=== PATIENT | female | born 1955 | race Caucasian/White ===

== ENCOUNTER → 2018-10-29 10:18 | Outpatient (CLI) | payer MEDICARE, SELFPAY ==
[2018-10-29 10:43] LABS: Prothrombin Time (Protime)PT. 12.8 SECONDS (11.7-14.9)
[2018-10-29 10:44] LABS: Partial Thromboplast Time 28.1 Seconds (24.1-36.2)
[2018-10-29 10:56] VITALS: BP 123/51; PULSE 98; RESP 16; TEMP 36.4; O2SAT 99; BMI 21.9
--- NOTE | 2018-10-29 11:05 | RAD_ITS ---
PROCEDURE: LUMBAR MYELOGRAM DATE OF EXAMINATION: October 29, 2018. INDICATION: Female, 63 years old. Prior lower lumbar and cervical spine fusion. PHYSICIAN: Benji Schreiber M.D. CONSENT: The patient's history and physical findings were reviewed. The lumbar myelogram procedure was discussed with the patient prior to signing a consent. SEDATION: Local anesthesia with 3 mL of 1% lidocaine was used. FLUOROSCOPY TIME (if supplied): (93 seconds) minutes/seconds Injection Information: 15 cc of Isovue-M 300 Number of images obtained: 6 TECHNIQUE: Digital fluoroscopy was used to identify a safe approach for the lumbar myelogram. The back was prepped and draped in usual fashion. Local anesthesia was utilized. Under fluoroscopic guidance a 22-gauge spinal needle was inserted into the spinal canal at L2-L3 level. 15 mL of Isovue 300 M was injected into the spinal canal. There is good opacification of the spinal fluid. The nerve root sheaths are asymmetrically identified. There is no extradural defects. Following this, the patient was put in a Trendelenburg position. Contrast was advanced to the cervical spine. A CT scan will follow. RAD/Cervical Myelogram IMPRESSION: Intrathecal contrast ministration. Contrast was advanced to the level of the cervical spine for CT imaging. The patient tolerated the procedure well. Electronically Signed: Benji Schreiber MD at 14:52 EST Tel [phone], Service support ,
--- NOTE | 2018-10-29 11:34 | CT_ITS ---
STUDY: CT CERVICAL SPINE WITH INTRATHECAL CONTRAST (CERVICAL CT MYELOGRAM) REASON FOR EXAM: Female, 63 years old. History of multiple cervical spinal fusions. Continued pain. RADIATION DOSAGE (If Supplied By Facility): CTDIvol = ( 13.71 ) mGy, DLP = ( 278.09 ) mGycm TECHNIQUE: Transaxial images were obtained following intrathecal administration of 15 ml of Isovue-M 300 contrast material, performed by Dr. Schreiber. Please refer to this physicians technical notes for procedural details. Coronal and sagittal reconstructions were obtained. Individualized dose optimization techniques were used for this CT. COMPARISON: None. 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 Normal anterior atlantoaxial articulation. Normal odontoid process. Normal cervical lordosis. The patient is status post anterior fusion with screw and plate fixation device at the C4-C5, C5-C6 and C6-C7 levels. The patient also status post screw and jose fixation involving the occipital bone as well as the C3 and C4 vertebrae and laminectomy. C2-3: Normal endplates. Normal disc height and morphology. Normal central canal and bilateral intervertebral neural foramen. C3-4: Normal endplates. Normal disc height and morphology. Normal central canal and bilateral intervertebral neural foramen. C4-C5 :Anterior screw fixation and plate device is seen. There is evidence of a fusion. C5-6: Anterior fusion and disc space narrowing. C6-7: Anterior fusion and disc space narrowing. Posterior bulge of the C7 vertebra causing minimal deformity of the central thecal sac. C7-T1: Minimal central disc bulge causing deformity of thecal sac. The nerve roots are unremarkable. Normal cervical cord size and morphology. No demonstrated soft tissue abnormality. CT/Spine Cervical without Contras IMPRESSION: Multiple findings as described above. Electronically Signed: Benji Schreiber MD at 10:13 EST Tel [phone], Service support ,
[2018-10-29 12:45] VITALS: BP 107/65; PULSE 91; RESP 14; O2SAT 99
== END ==
PROVIDERS: Radiology Diagnostic Radiology; Family Provider Family Medicine; PCP Family Medicine
DX: M50.120 Mid-cervical disc disorder, unspecified level (principal); Z98.1 Arthrodesis status; Z79.01 Long term (current) use of anticoagulants
CPT/HCPCS: 62304; 36415; 62284; 72125; 72240; 85610; 85730; Q9965

== ENCOUNTER → 2020-12-08 11:26 | Outpatient (CLI) | payer MEDICARE, SELFPAY ==
[2018-10-29 10:56] VITALS: BMI 21.9
--- NOTE | 2020-12-08 11:39 | CT_ITS ---
STUDY: CT CERVICAL SPINE WITH INTRATHECAL CONTRAST (CERVICAL CT MYELOGRAM) REASON FOR EXAM: Female, 65 years old. NECK PAIN RADIATION DOSAGE (If Supplied By Facility): CTDIvol = ( 13.14 ) mGy, DLP = ( 299.30 ) mGycm TECHNIQUE: Transaxial images were obtained following intrathecal administration of 15 ml of ISOVUE-M 300 contrast material, performed by Dr. WHITAKER. Please refer to this physicians technical notes for procedural details. Coronal and sagittal reconstructions were obtained. Individualized dose optimization techniques were used for this CT. COMPARISON: Comparison is made with prior examination dated 10/29/2018. FINDINGS: The patient is status post fusion of the cranial vertebral junction with the screw and jose fixation device. The patient is status post laminectomy and interpedicular screw and jose fixation at the C2-C3, C3-C4 and C4-C5 levels. Status post anterior fusion with screw and plate fixation device at the C4-C5, C5-6 and C6-C7 levels. Normal anterior atlantoaxial articulation. Normal odontoid process. Normal cervical lordosis. Normal vertebral bodies and posterior osseous elements. C2-3: Normal endplates. Normal disc height and morphology. Normal central canal and bilateral intervertebral neural foramen. C3-4: Normal endplates. Normal disc height and morphology. Normal central canal and bilateral intervertebral neural foramen. C4-5: Normal endplates. Normal disc height and morphology. Normal central canal and bilateral intervertebral neural foramen. C5-6: Normal endplates. Normal disc height and morphology. Normal central canal and bilateral intervertebral neural foramen. C6-7: Normal endplates. Normal disc height and morphology. Normal central canal and bilateral intervertebral neural foramen. C7-T1: Normal endplates. Normal disc height and morphology. Normal bilateral uncovertebral and apophyseal joints. Normal central canal and bilateral intervertebral neural foramen. Normal cervical cord size and morphology. No demonstrated soft tissue abnormality. CT/Spine Cervical WITH Contrast IMPRESSION: No evidence of spinal stenosis or herniated nucleus pulposus. Stable appearance of the anterior and posterior fusions as described. Electronically Signed: Benji Whitaker MD at 13:35 EST , Service support ,
--- NOTE | 2020-12-08 11:39 | CT_ITS ---
STUDY: CT LUMBAR SPINE WITH INTRATHECAL CONTRAST (LUMBAR CT MYELOGRAM) REASON FOR EXAM: Female, 65 years old. BACK PAIN RADIATION DOSAGE (If Supplied By Facility): CTDIvol = ( 12.53 ) mGy, DLP = ( 395.37 ) mGycm TECHNIQUE: Transaxial images were obtained from the L1 vertebra through the S1 vertebral level, following intrathecal administration of 15 ml of ISOVUE-M 300 contrast material, performed by Dr. WHITAKER. Please refer to this physicians technical notes for procedural details. Coronal and sagittal reconstructions were obtained. Individualized dose optimization techniques were used for this CT. COMPARISON: None. FINDINGS: Normal lumbar lordosis. There is no substantial scoliosis. The mineralization of the lumbar vertebrae. There is dependent layering of contrast material in the distal thecal sac. The conus medullaris terminates in a normal position at the L1-L2 level. There is no demonstrated cauda equina nerve root abnormality or intraspinal mass. L1-2: Normal endplates. Normal disc height and morphology. Normal bilateral facet joints. Normal central canal and bilateral lateral recesses. Normal bilateral intervertebral neural foramina. L2-3: Normal endplates. Normal disc height and morphology. Normal bilateral facet joints. Normal central canal and bilateral lateral recesses. Normal bilateral intervertebral neural foramina. L3-4: Normal endplates. Normal disc height and morphology. Normal bilateral facet joints. Normal central canal and bilateral lateral recesses. Normal bilateral intervertebral neural foramina. L4-5: Normal endplates. Normal disc height and morphology. Normal bilateral facet joints. Normal central canal and bilateral lateral recesses. Normal bilateral intervertebral neural foramina. L5-S1: The patient is status post fusion at the L5-S1 level with loss of the disc space. No evidence of spinal stenosis. There is evidence of a healing fractures of the bilateral sacral wings. Normal visualized paraspinous soft tissue structures. CT/Spine Lumbar WITH Contrast IMPRESSION: The mineralization of the lumbar vertebrae. Healing fractures of the sacral wings bilaterally. Status post fusion at the L5-S1 level with loss of the disc space. Electronically Signed: Benji Whitaker MD at 13:38 EST , Service support ,
[2020-12-08 11:50] VITALS: PULSE 94; RESP 16; TEMP 37.2; O2SAT 99; BMI 23.3
--- NOTE | 2020-12-08 12:00 | RAD_ITS ---
PROCEDURE: LUMBAR MYELOGRAM DATE OF EXAMINATION: 12/08/2020 INDICATION: Female, 65 years old. Low back and neck pain. PHYSICIAN: Benji Schreiber M.D. CONSENT: The patient''s history and physical findings were reviewed. The lumbar myelogram procedure was discussed with the patient prior to signing a consent. SEDATION: Local anesthesia with 3 mL of 1% lidocaine was used. FLUOROSCOPY TIME (if supplied): (1:27) minutes/seconds Injection Information: 15 cc of ISOVUE-M 300 Number of images obtained: 4 TECHNIQUE: Digital fluoroscopy was used to identify a safe approach for the lumbar myelogram. The back was prepped and draped in usual fashion. Local anesthesia was utilized. Under fluoroscopic guidance a 22-gauge spinal needle was inserted into the spinal canal at the L4-5 level. Clear spinal fluid was seen . 15 mL of Isovue 300 M was injected into the spinal canal. Following this, the patient was placed in reverse TRENDELENBURG and contrast was placed in the cervical spine. There is good opacification of the spinal fluid. The nerve root sheaths are asymmetrically identified. There is no extradural defects. RAD/Myelography 2/> Spine Regions IMPRESSION: Successful myelogram. CT scan will follow. Electronically Signed: Benji Schreiber MD at 14:04 EST , Service support ,
[2020-12-08 14:15] VITALS: BP 144/75; PULSE 95; RESP 16; O2SAT 100
== END ==
PROVIDERS: PCP Family Medicine
DX: S32.009A Unspecified fracture of unspecified lumbar vertebra, initial encounter for closed fracture (principal); M54.16 Radiculopathy, lumbar region; Z98.1 Arthrodesis status
CPT/HCPCS: 62305; 72126; 72132; Q9965

== ENCOUNTER 2025-02-25 18:31 | Emergency (ER) | payer MEDICARE, SELFPAY ==
[2025-02-25 18:32] VITALS: BP 103/60; PULSE 93; RESP 16; TEMP 36.6; O2SAT 97
--- NOTE | 2025-02-25 19:06 | EDS_ITS ---
HPI History of Present Illness Chief Complaint: Headache PFSH PFSH Allergy/AdvReac Type Severity Reaction Status Date / Time alendronate sodium (From AdvReac Other Verified 02/25/25 18:33 Fosamax) Social History Smoking Status: Never smoker EXAM Physical Exam Const Vital Signs: 02/25/25 18:32 Temperature 98 F Temperature Source Temporal Pulse Rate 93 Respiratory Rate 16 Blood Pressure 103/60 Blood Pressure Mean 74 Pulse Ox 97 Oxygen Delivery Method Room Air MDM [facility] MDM Narrative Medical decision making narrative: HISTORY OF PRESENT ILLNESS: Chief complaint: Headache 69-year-old female presents with headache after head trauma. Notes she was bent over to get something out of the freezer when she stepped she hit her head on the back of the bottle of the refrigerator Notes worsening headache since injury. Denies taking blood thinners REVIEW OF SYSTEMS: Pertinent positives: Head injury Pertinent negatives: Vomiting PHYSICAL EXAM: Nursing triage notes reviewed, Vital signs reviewed Primary Survey Airway: Intact Breathing: Bilateral breath sounds Circulation: Palpable bilateral femorals, Palpable bilateral radial, Palpable bilateral DP and Palpable bilateral PT Disability / Spine precautions GCS Score: Eye Openin Verbal Response: 5 Motor Response: 6 Secondary Survey Constitutional: Please see MDM Head: Atraumatic, Midface stable, NO jaw malocclusion, No Cephalohematoma, and No Lacerations noted Eye: Pupils equal round and reactive to light, Extraocular muscles intact and No periorbital ecchymosis or stepoff, no evidence of entrapment ENT: Oropharynx clear, no lacerations, no hemotympanum, no raccoon eyes or mijares sign Cervical spine / Neck: No cervical spine bony tenderness, crepitance, or stepoff deformity Trachea midline Lungs: Clear to auscultation, No asymmetric rise and No crepitus, no flail chest Cardiac: Regular rate and rhythm and No murmurs Abdomen: Soft, Nontender and No rebound Pelvis: Pelvis stable to compression : No evidence of genital injury Back: No midline bony tenderness to thoracic/lumbar/sacral spines Neuro: At baseline, intact strength and sensation in bilateral upper and lower extremities. 2+ patellar reflexes bilaterally. Extremities: NO gross Deformities Psych: Normal affect Nursing triage notes reviewed, Vital signs reviewed MEDICAL DECISION MAKING: Chief Complaint: please see HPI External records reviewed: Reviewed prior imaging studies Factors affecting care: History of cervical spine surgery Social determinants of health: none History obtained from others: none Consults: none [facility] Narrative: The patient was initially hemodynamically stable, afebrile and nontoxic- appearing. Given age will obtain a CT scan of the head rule out ICH or skull fracture. Will obtain a CT scan cervical spine rule out cervical spine injury ALL IMAGES (IF OBTAINED) HAVE BEEN PERSONALLY REVIEWED AND INTERPRETED BY MYSELF. CT scan of the head showed no acute abnormalities CT scan cervical spine showed no acute fracture Incidental finding of pulmonary nodule discussed with patient Patient is appropriate for discharge home The patient and/or family, caregivers express understanding. The patient and/or family, caregivers agrees with the plan. Shared decision making: I will have a discussion with the patient and or visitors regarding risk/benefits of further testing or admission. They will be made aware of of the risk/benefits inherent in this decision they will be given the opportunity to voice understanding. Total critical care time today provided was at least 0] minutes. This excludes separately billable procedures. Critical care time (if documented) is secondary to the patient having high probability of clinically significant/life threatening deterioration in the patient's condition which required my urgent intervention. Impression: 1. Closed head injury Dispo: Discharge home This note was generated with [employer] dictation software. It may contain incorrect words, spelling, and punctuation that were not noted in review of the chart prior to signing. Radiography Diagnostic Testing: Clinical Impression(s) from Imaging Studies Brain CT 02/25/25 19:07 IMPRESSION: 1. Generalized brain atrophy. 2. Small vessel ischemic/degenerative changes. 3. No acute intracranial hemorrhage, midline shift or mass effect. If symptoms persist, further evaluation with MRI is recommended. Reading Location: [facility] Cervical Spine CT 02/25/25 19:43 IMPRESSION: 1. No acute fracture. 2. 2.2 cm pulmonary nodule of the left lung apex. This can be further evaluated with chest CT. Reading Location: [facility] Discharge Plan Triage Chief Complaint: Headache ED Provider: Marquis Berrios Dx/Rx/DC Orders Primary Care Provider: Deepti Robison Referrals: Ismael Amador MD [Non-Staff] - Print Language: Portuguese
--- NOTE | 2025-02-25 19:07 | CT_ITS ---
EXAM: CT Head Without Intravenous Contrast CLINICAL INDICATION: HEAD TRAUMA TECHNIQUE: Axial computed tomography images of the head/brain without intravenous contrast. This CT exam was performed using one or more of the following dose reduction techniques: automated exposure control, adjustment of the mA and/or kV according to patient size, and/or use of iterative reconstruction technique. COMPARISON: No relevant prior studies available. FINDINGS: BRAIN AND EXTRA-AXIAL SPACES: The cerebral and cerebellar sulci are prominent consistent with brain atrophy. Areas of decreased attenuation in the deep cerebral white matter are consistent with small vessel ischemic/degenerative changes. No acute intracranial hemorrhage, midline shift or mass effect. If symptoms persist, further evaluation with MRI is recommended. BONES/JOINTS: Unremarkable. No acute fracture. SOFT TISSUES: Unremarkable. SINUSES: Unremarkable as visualized. No acute sinusitis. MASTOID AIR CELLS: Unremarkable as visualized. No mastoid effusion. CT/Brain/Head without Contrast IMPRESSION: 1. Generalized brain atrophy. 2. Small vessel ischemic/degenerative changes. 3. No acute intracranial hemorrhage, midline shift or mass effect. If symptoms persist, further evaluation with MRI is recommended. Reading Location: [id number]
[2025-02-25 19:10] VITALS: BMI 25.0
--- NOTE | 2025-02-25 19:43 | CT_ITS ---
EXAM: CT Cervical Spine Without Intravenous Contrast CLINICAL INDICATION: NECK PAIN TECHNIQUE: Axial computed tomography images of the cervical spine without intravenous contrast. This CT exam was performed using one or more of the following dose reduction techniques: automated exposure control, adjustment of the mA and/or kV according to patient size, and/or use of iterative reconstruction technique. COMPARISON: No relevant prior studies available. FINDINGS: VERTEBRAE: Unremarkable. No acute fracture. DISCS/SPINAL CANAL/NEURAL FORAMINA: Status post posterior fusion of the occipital convexity to C4. Intact hardware. Anterior fusion of C4-C7. Intact hardware. Anatomical position. SOFT TISSUES: Unremarkable. LUNG APICES: 2.2 cm pulmonary nodule of the left lung apex. This can be further evaluated with chest CT. CT/Spine Cervical without Contras IMPRESSION: 1. No acute fracture. 2. 2.2 cm pulmonary nodule of the left lung apex. This can be further evaluat ed with chest CT. Reading Location: [id number]
[2025-02-25 20:33] VITALS: BP 103/63; PULSE 89; RESP 18; TEMP 36.7; O2SAT 100
== END 2025-02-25 20:34 | disposition home or self-care (01) ==
PROVIDERS: Emergency Provider Emergency Medicine; PCP Family Medicine; Visit Provider Emergency Medicine
DX: S09.90XA Unspecified injury of head, initial encounter (principal); X58.XXXA Exposure to other specified factors, initial encounter
CPT/HCPCS: 70450; 72125; 99282

== ENCOUNTER → 2025-09-08 | Outpatient (CLI) | payer MEDICARE, SELFPAY ==
--- NOTE | 2025-09-08 17:08 | CT_ITS ---
PROCEDURE: CHEST WITHOUT CONTRAST 09/08/2025 REASON FOR EXAM: NODULE Personal history of lung cancer. History of bone disease TECHNIQUE: Chest CT without contrast. Coronal and Sagittal reconstruction series were provided. One or more dose reduction techniques were used (e.g., Automated exposure control, adjustment of the mA and/or kV according to patient size, use of iterative reconstruction technique RADIATION DOSE SUMMARY: CTDlvol: 6 mGy DLP: 206 mGycm COMPARISON: None FINDINGS: Hardware: None Lymph nodes: None appear enlarged. Heart and Vasculature: Mild atherosclerosis aorta aneurysm. Heart is normal size. Pericardial effusion. Pacemaker place. Coronary Artery Calcifications: Absent Lungs and Airways: Subsegmental atelectasis/scarring medial basal right lower lobe. At the left upper lobe adjacent to the spine near the apex there is a 2.7 x 2.0 x 1.6 cm nodule with some dystrophic calcification superiorly. Pleura: No pleural effusion or pneumothorax. Upper Abdomen: Cholecystectomy Bones: Severe bone demineralization. Multiple biconcave compression fractures mid and lower thoracic spine. Retropulsion involving posterior superior margin lower thoracic vertebral body is present. Mild deformity mid sternum. CT/Chest without Contrast IMPRESSION: Nodule in the left upper lobe near the apex with some dystrophic calcification. This may represent a treated lesion. Nevertheless, it is non-specific. No priors available for comparison, review. Neoplasia not excluded. Correlate with prior exams. Consider PET-CT if appropriate. Multiple compression fractures midthoracic spine. Bone demineralization. Reading Location: [id number]
== END | disposition home or self-care (01) ==
LOC: CT 17:07
PROVIDERS: PCP Family Medicine; Referring Provider Internal Medicine Critical Care Medicine; Visit Provider Internal Medicine Critical Care Medicine
DX: R91.1 Solitary pulmonary nodule (principal)
CPT/HCPCS: 71250